=== PATIENT | female | born 1975 | race Caucasian/White ===

== ENCOUNTER → 2023-05-11 | Outpatient (CLI) | payer BC, SELFPAY | END | disposition home or self-care (01) | LOC: LABSPEC 13:01 | PROVIDERS: PCP Family Medicine; Visit Provider Nurse Practitioner Women's Health | DX: N89.8 Other specified noninflammatory disorders of vagina (principal) | CPT/HCPCS: 87070; 87205 ==

== ENCOUNTER → 2023-05-20 | Outpatient (CLI) | payer BC, SELFPAY ==
--- OUTSIDE RECORDS SUMMARY | 2023-05-20 07:02 | XMS RPT_ITS | CCD ---
Author Name Unknown Address [address] [place] [address] Organization [facility] Care Team Providers Care Solder [employer] Name Role Phone FAYE OVIEDO Unavailable Unavailable FAYE OVIEDO Unavailable Unavailable PHYSICIAN, NOT RECORDED Unavailable Unavaila ble Unavailable Primary Care Provider Unavailabl e Jin ASHRAF, Mino Boyce Primary Care Provider Mino Oviedo MD Primary Care Provider SARAI WOODARD Attending Unavailable MINO OVIEDO Primary Care Unavailable MINO OVIEDO Primary Care Unavailable Allergies Allergy Classification Reported Allergen(s) Allergy Type Date of Onset Reaction(s) Facility (14 sources) Ciprofloxacin Drug Allergy 06-11-2015 [facility] Medications Current Medications Medication Drug Class(es) Dates Sig (Normalized) Sig (Original) [id number] 200 actuat albuterol 0.09 mg/actuat metered dose inhaler (15 sources) beta2-Adrenergic Agonist Start: 07-23-2019 take 2 puff(s) by inhalation every six hours as needed albuterol 108 (90 Base) MCG/ACT inhaler Inhale 2 puffs every 6 hours as needed. 0 07/23/2019 Active Completed/Discontinued Medications Medication Drug Class(es) Dates Sig (Normalized) Sig (Original) acetaminophen 325 mg / butalbital 50 mg / caffeine 40 mg oral tablet (3 sources) Barbiturate, Central Nervous System Stimulant, Methylxanthine Start: 06-30-2015 End: 10-27-2022 butalbital-acetami nophen-caffeine 50-325-40 MG tablet Take 1 tablet by mouth. 0 06/30/2015 10/27/2022 Discontinued (Formulary change) Problems Active Problems Problem Classification Problem Date Documented Date Episodic/Chronic Disorders of lipid metabolism (18 sources) Hyperlipidemia; Translations: [Hyperlipidemia, unspecified] Onset: 10-31-2019 03-07-2022 Chronic Headache; including migraine (20 sources) Chronic tension-type headache; Translations: [Chronic tension-type headache, not intractable] Onset: 06-30-2015 03-07-2022 Chronic Mood disorders (17 sources) Recurrent major depression in partial remission; Translations: [Major depressive disorder, recurrent, in partial remission] Onset: 10-29-2020 03-07-2022 Chronic Other nutritional; endocrine; and metabolic disorders (7 sources) Obesity; Translations: [Other obesity due to excess calories] Onset: 11-06-2021 05-07-2022 Chronic Other nutritional; endocrine; and metabolic disorders (8 sources) Obesity caused by energy imbalance; Translations: [Other obesity due to excess calories] Onset: 11-06-2021 05-07-2022 Chronic Other nutritional; endocrine; and metabolic disorders (2 sources) Other obesity due to excess calories; Translations: [Other obesity due to excess calories] Onset: 05-07-2022 Chronic Other nutritional; endocrine; and metabolic disorders (2 sources) Body mass index (BMI) 37.0-37.9, adult; Translations: [Body mass index (BMI) 37.0-37.9, adult] Onset: 05-07-2022 Chronic Other skin disorders (1 source) Eruption; Translations: [Rash and other nonspecific skin eruption] Episodic Residual codes; unclassified (1 source) Flushing; Translations: [Flushing] 10-27-2022 Episodic Spondylosis; intervertebral disc disorders; other back problems (14 sources) Degeneration of lumbar intervertebral disc; Translations: [Other intervertebral disc degeneration, lumbar region] Onset: 03-29-2022 03-29-2022 Chronic Past or Other Problems Problem Classification Problem Date Documented Date Episodic/Chronic Contraceptive and procreative management (14 sources) Oral contraception status; Translations: [Encounter for surveillance of contraceptive pills] Onset: 05-01-2021 03-07-2022 Episodic Disorders of teeth and jaw (14 sources) Temporomandibular joint disorder; Translations: [Unspecified temporomandibular joint disorder, unspecified side] Onset: 06-11-2015 03-07-2022 Episodic Immunizations and screening for infectious disease (14 sources) Raised antinuclear antibody; Translations: [Other specified abnormal immunological findings in serum] Onset: 03-29-2022 03-29-2022 Episodic Mood disorders (14 sources) Mood disorders Onset: 05-06-2022 Resolved: 10-27-2022 05-06-2022 Other screening for suspected conditions (not mental disorders or infectious disease) (9 sources) Patient encounter status; Translations: [Encounter for screening for malignant neoplasm of colon] Onset: 10-27-2022 10-27-2022 Episodic Residual codes; unclassified (15 sources) Edema of lower extremity; Translations: [Localized edema] Onset: 09-23-2017 03-07-2022 Episodic Residual codes; unclassified (15 sources) Insomnia; Translations: [Insomnia, unspecified] Onset: 03-29-2022 03-29-2022 Episodic Residual codes; unclassified (2 sources) Localized edema; Translations: [Localized edema] Onset: 10-27-2022 03-26-2023 Episodic Residual codes; unclassified (1 source) Localized edema; Translations: [Localized edema] Onset: 03-07-2022 Episodic Residual codes; unclassified (2 sources) Insomnia, unspecified; Translations: [Insomnia, unspecified] Onset: 03-29-2022 Episodic Residual codes; unclassified (2 sources) Flushing; Translations: [Flushing] Onset: 10-27-2022 Episodic Results Test Name Value Interpretation Reference Range Facil ity Vital Signs Date Time Vital Sign Value Performing Clinician Smith armstrong 10-27-2022 07:42-0400 Body height 172.7 cm Sarai Woodard APRN [employer] Work Phone: [employer] 10-27-2022 07:42-0400 Body mass index (BMI) [Ratio] 37.4 kg/m2 Sarai Woodard TRACK SUPERVISOR [employer] Work Phone: [employer] 10-27-2022 07:42-0400 Body weight 111.58 kg Sarai Woodard APRN [employer] Work Phone: [employer] 10-27-2022 07:42-0400 Diastolic blood pressure 80 mm[Hg] Sarai Woodard APRN [employer] Work Phone: [facility] [employer] 10-27-2022 07:42-0400 Heart rate 73 /min Sarai Woodard TRACK SUPERVISOR - [employer] Work Phone: [facility] [employer] 10-27-2022 07:42-0400 SaO2% (BldA) [Mass fraction] 98 % Sarai Woodard TRACK SUPERVISOR - [employer] Work Phone: [facility] [employer] 10-27-2022 07:42-0400 Systolic blood pressure 136 mm[Hg] Sarai Woodard TRACK SUPERVISOR - [employer] Work Phone: [facility] 03-06-2022 11:28-0400 Body height 175.3 cm Renae Minnie PA-C Work Phone: [facility] 03-06-2022 11:28-0400 Body temperature 98.01 [degF] Renae Minnie PA-C Work Phone: [facility] 03-06-2022 11:28-0400 Body weight 107.05 kg Renae [place] PA-C Work Phone: [facility] 03-06-2022 11:28-0400 Diastolic blood pressure 88 mm[Hg] Renae [place] PA-C Work Phone: [facility] 03-06-2022 11:28-0400 Heart rate 66 /min Renae [place] PA-C Work Phone: [facility] 03-06-2022 11:28-0400 Respiratory rate 16 /min Renae [place] PA-C Work Phone: [facility] 03-06-2022 11:28-0400 SaO2% (BldA) [Mass fraction] 98 % Renae Minnie PA-C Work Phone: [facility] 03-06-2022 11:28-0400 Systolic blood pressure 122 mm[Hg] Renae [place] PA-C Work Phone: [facility] Encounters Encounter Date Encounter Type Care Provider Facility Start: 05-11-2023 Refill Sarai Woodard TRACK SUPERVISOR - [employer] Work Phone: [facility] Procedures Date Procedure Procedure Detail Performing Clinician Start: 11-25-2022 Lipid 1995 panel - S drake or Plasma Sarai Woodard TRACK SUPERVISOR - [employer] Work Phone: Start: 10-27-2022 Lipid 1995 panel - S drake or Plasma Sarai Woodard TRACK SUPERVISOR - [employer] Work Phone: Start: 11-06-2021 Lipid 1995 panel - S drake or Plasma Mino Oviedo MD Work Phone: Start: 11-06-2021 Microscopic observat ion [Identifier] in Cervix by Cyto stain Mino Oviedo MD Work Phone: Start: 06-22-2019 Mammography Mino ledesma MD Work Phone: Plan of Treatment Date Care Activity Detail Author Start: 2035 RSV Immunization age d 60 or older (1 - 1-dose 60+ series) RSV Immunization aged 60 or older (1 - 1-dose 60+ series) [facility] Start: 11-26-2027 Lipid panel Lipid Panel [facility] Start: 10-28-2027 Lipid panel Lipid Panel [facility] Start: 11-06-2026 Lipid panel Lipid Panel [facility] Start: 11-24-2025 Screening for malign ant neoplasm of colon [facility] Start: 10-05-2025 Zoster Vaccines (1 of 2) Zoster Vacc mitul (1 of 2) [facility] Start: 05-07-2025 Diabetes mellitus screening Diabetes Screening [facility] Start: 11-06-2024 Screening for malign ant neoplasm of cervix [facility] Start: 05-07-2023 COVID-19 Vaccine (3 - Booster for Moderna series) COVID-19 Vaccine (3 - Booster for Moderna series) [facility] Immunizations Immunization Date Immunization Notes Care Provider Fa naren 06-23-2000 Td, Adsorbed, Preser vative Free, Adult Use, Lf Unspecified Mino Oviedo MD Work Phone: [facility] 10-05-1976 measles, mumps and r ubella virus vaccine Mino Oviedo MD Work Phone: [facility] Payers Date Payer Category Payer Unknown [id number] 2020 Unknown [id number] 2017 Unknown [id number] Social History Date Type Detail Facility Tobacco smoking stat [facility] Tobacco smoking consumption unknown [facility] Start: 1975 Sex Assigned At Not on file C [facility] Start: 02-24-2022 End: 11-25-2022 Exposure to SARS-CoV-2 (event) Not sure [facility] Tobacco smoking stat [facility] Never smoked tobacco [facility] Start: 05-11-2022 End: 10-27-2022 Alcohol intake Current non-drinker of alcohol (finding) [facility] Start: 05-11-2022 End: 10-27-2022 Alcohol intake [facility] Start: 1975 Sex Assigned At Female [facility] Start: 05-06-2022 End: 10-27-2022 Tobacco use panel [facility] Start: 03-24-2022 Gender identity Identifies as female gender (finding) [facility] Adolescent depressio n screening assessment 5 [facility] Clinical Notes 03-06-2022 to 05-11-2023 Telephone Encounter - BASSEM Villarreal CNP - 05/11/2023 12:28 PM ESTTelephone Encounter - BASSEM Villarreal CNP - 05/11/2023 12:28 PM ESTPatient Instructions Note Date & Type Note Facility 05-11-2023 Telephone encounter Note Reviewed chart. Refill not appropriate, too soon. RX refused [facility] Work Phone: 05-11-2023 Miscellaneous Notes Reviewed chart. Refill not appropriate, too soon. RX refused Prescription Request: Last medication check: 05/07/22 Last physical exam: 10/27/22 Next scheduled appointment: none Last date of refill on this medication 05/06/23 documented in this encounter [facility] 05-11-2023 Telephone encounter Note Prescription Request: Last medication check: 05/07/22 Last physical exam: 10/27/22 Next scheduled appointment: none Last date of refill on this medication 05/06/23 [facility] 05-09-2023 Note Addended by: KATHY MIRANDA on: 05/09/2023 10:58 AM Modules accepted: Orders [facility] 05-09-2023 Note Addended by: KATHY MIRANDA on: 05/09/2023 10:58 AM Modules accepted: Orders [facility] 05-09-2023 Miscellaneous Notes Addended by: KATHY MIRANDA on: 05/09/2023 10:58 AM Modules accepted: Orders Patient states she did not get a 90 day supply, I called the pharmacy, they said they were trying to sync up her fills so she received 90 in November, then 03/05/23 she got 22, then 04/08/23 she got 30 and now the insurance won't pay for another partial rx unless it is a 90 day supply. They need a new rx. Was filled in November for a 90 day supply plus one refill in November. Not due for refill until May. Pharmacy stated insurance is requesting for this to be a 90 day Medication name: atorvastatin (Lipitor) 40 MG tablet Medication dosage: 40 mg (Miligrams Monthly quantity needed: 90 How many day supply requestin days Medication route: oral (PO) Medication administration time(s): daily If taking medication PRN, reason for taking medication: N/A If this is a controlled substance do you receive this or any other controlled medication from any other doctor or facility: No Ordering provider: Dr. Oviedo Date of last office visit: 10.27.2022 Date of next office visit: NA Date of last refill: (see medication tab): 11.29.2022 Updated/Validated preferred pharmacy: Yes Patient instructed to contact the pharmacy prior to picking up the medication: Yes documented in this encounter [facility] [employer] 05-09-2023 Telephone encounter Note Patient states she did not get a 90 day supply, I called the pharmacy, they said they were trying to sync up her fills so she received 90 in November, then 03/05/23 she got 22, then 04/08/23 she got 30 and now the insurance won't pay for another partial rx unless it is a 90 day supply. They need a new rx. [facility] [employer] 05-09-2023 Telephone encounter Note Pt declines to schedule at this time. [facility] 05-09-2023 Miscellaneous Notes Pt declines to schedule at this time. Images from the original note were not included. Sarai Woodard, BASSEM - [employer] 05/06/23 12:30 PM Note Rx sent. Due for annual physical in October- please schedule. Left a message to return call. LM please schedule PE in october Rx sent. Due for annual physical in October- please schedule. Prescription Request: Last medication check: 05/07/22 Last physical exam: 10/27/22 Next scheduled appointment: none Last date of refill on this medication 03/23/23 16 tablets documented in this encounter [facility] [employer] 05-09-2023 Telephone encounter Note Images from the original note were not included. BASSEM Berry CNP 05/06/23 12:30 PM Note Rx sent. Due for annual physical in October- please schedule. Left a message to return call. [facility] [employer] 05-06-2023 Telephone encounter Note LM please schedule PE in october [facility] [employer] 05-06-2023 Miscellaneous Notes LM please schedule PE in october Rx sent. Due for annual physical in October- please schedule. Prescription Request: Last medication check: 05/07/22 Last physical exam: 10/27/22 Next scheduled appointment: none Last date of refill on this medication 03/23/23 16 tablets documented in this encounter [facility] [employer] 05-06-2023 Telephone encounter Note Rx sent. Due for annual physical in October- please schedule. [facility] [employer] 05-06-2023 Telephone encounter Note Was filled in November for a 90 day supply plus one refill in November. Not due for refill until May. [employer] 05-06-2023 Telephone encounter Note Pharmacy stated insurance is requesting for this to be a 90 day Medication name: atorvastatin (Lipitor) 40 MG tablet Medication dosage: 40 mg (Miligrams Monthly quantity needed: 90 How many day supply requestin days Medication route: oral (PO) Medication administration time(s): daily If taking medication PRN, reason for taking medication: N/A If this is a controlled substance do you receive this or any other controlled medication from any other doctor or facility: No Ordering provider: Dr. Oviedo Date of last office visit: 10.27.2022 Date of next office visit: NA Date of last refill: (see medication tab): 11.29.2022 Updated/Validated preferred pharmacy: Yes Patient instructed to contact the pharmacy prior to picking up the medication: Yes [facility] [employer] 05-06-2023 Telephone encounter Note Prescription Request: Last medication check: 05/07/22 Last physical exam: 10/27/22 Next scheduled appointment: none Last date of refill on this medication 03/23/23 16 tablets [employer] 03-28-2023 Telephone encounter Note Prescription Request: Last medication check: 05/07/22 Last physical exam: 10/27/22 Next scheduled appointment: 05/02/23 Last date of refill on this medication 11/05/22 90 day 1 refill [facility] 03-28-2023 Miscellaneous Notes Prescription Request: Last medication check: 05/07/22 Last physical exam: 10/27/22 Next scheduled appointment: 05/02/23 Last date of refill on this medication 11/05/22 90 day 1 refill documented in this encounter [facility] 03-23-2023 Telephone encounter Note Clarified with pt, send to [facility] pharmacy on file. [facility] 03-23-2023 Miscellaneous Notes Clarified with pt, send to [facility] pharmacy on file. Name of caller: Yasmine Contact phone number: [phone] Relationship to Patient: patient Provider: Dr. Oviedo Practice: [facility] Chief Complaint/Reason for Call: The patient is calling in stating she needs a refill of her medication called Rimegepant Sulfate (Nurtec) 75 MG tablet dispersible. The patient states the medication goes through [facility] and they can be reached at [phone]. Please advise. Best time of day caller can be reached: Any Patient advised that office/PCP has 24-48 business hours to return their call: No documented in this encounter [facility] 03-23-2023 Telephone encounter Note Name of caller: Yasmine Contact phone number: [phone] Relationship to Patient: patient Provider: Dr. Oviedo Practice: [facility] Chief Complaint/Reason for Call: The patient is calling in stating she needs a refill of her medication called Rimegepant Sulfate (Nurtec) 75 MG tablet dispersible. The patient states the medication goes through [facility] and they can be reached at [phone]. Please advise. Best time of day caller can be reached: Any Patient advised that office/PCP has 24-48 business hours to return their call: No [facility] 01-20-2023 Telephone encounter Note Medication name: Rimegepant Medication dosage: 75 mg (Miligrams Monthly quantity needed: 16 How many day supply requesting: N/A Medication route: oral (PO) Medication administration time(s): Take 1 tablet by mouth daily as needed (headaches). No more than one dose in 24 hours. If taking medication PRN, reason for taking medication: N/A If this is a controlled substance do you receive this or any other controlled medication from any other doctor or facility: No Ordering provider: Dr Oviedo Date of last office visit: 10.27.22 Date of next office visit: 05.02.23 Date of last refill: (see medication tab): 12.03.22 Updated/Validated preferred pharmacy: Yes Patient instructed to contact the pharmacy prior to picking up the medication: Yes [facility] 01-20-2023 Miscellaneous Notes Medication name: Rimegepant Medication dosage: 75 mg (Miligrams Monthly quantity needed: 16 How many day supply requesting: N/A Medication route: oral (PO) Medication administration time(s): Take 1 tablet by mouth daily as needed (headaches). No more than one dose in 24 hours. If taking medication PRN, reason for taking medication: N/A If this is a controlled substance do you receive this or any other controlled medication from any other doctor or facility: No Ordering provider: Dr Oviedo Date of last office visit: 10.27.22 Date of next office visit: 05.02.23 Date of last refill: (see medication tab): 12.03.22 Updated/Validated preferred pharmacy: Yes Patient instructed to contact the pharmacy prior to picking up the medication: Yes documented in this encounter [facility] 12-27-2022 Telephone encounter Note Rx sent. Follow up as scheduled. [facility] 12-27-2022 Miscellaneous Notes Rx sent. Follow up as scheduled. Prescription Request: Last medication check: 05/07/22 Last physical exam: 10/27/22 Next scheduled appointment: 05/02/23 Last date of refill on this medication 07/12/22 84 tablets 1 refill documented in this encounter [facility] 12-27-2022 Telephone encounter Note Prescription Request: Last medication check: 05/07/22 Last physical exam: 10/27/22 Next scheduled appointment: 05/02/23 Last date of refill on this medication 07/12/22 84 tablets 1 refill [facility] 11-10-2022 History of Presen t illness Narrative Received fax for refill of Nurtec. Rx sent. documented in this encounter [facility] 10-27-2022 History of Presen t illness Narrative Images from the original note were not included. [facility] [address] [facility] [address] [facility] [id number] Dept: [phone] Dept Loc: [phone] HPI: Yasmine Simmons is a 47 y.o. female who presents today for her medical conditions/complaints as noted below. Yasmine Simmons is c/o of Annual Exam and Health Maintenance (Hep C--declines, HIV--declines, Colon--will do cologuard, Caleb--declines, Tdap--declines, Hep B--declines, COVID 3--has not had) HPI- Yasmine Simmons presents today for her annual physical and fasting blood work. Declines a WFE today. Has been running 2-3 times per week and goes to full body classes for exercise. Has menopause symptoms (hot flashes) and is planning to schedule an appointment with a specialist in [place] for management of her symptoms. Would like her thyroid level checked today. Hyperlipidemia: Has not been taking her Rosuvastatin for her cholesterol for the past month because she received notification from her insurance that they will no longer cover her medication. Levels were stable when checked in October of 2021- will recheck today. Component Ref Range & Units 11/06/21 0730 Cholesterol <200 mg/dL 179 Triglycerides <150 mg/dL 119 HDL 40 - 60 mg/dL 60 LDL Cholesterol <100 mg/dL 95 Chol/HDL Ratio NA 3 Headaches: Symptoms have been stable- does have a headache today but this is her first one in a month. Has been going to a chiropractor and feels this has been helping. Denies current concerns or worries. Her sister has been selling Nurtec ([facility] mail order) and has tried this and states it is helpful. Requesting a prescription for this. Has not been using the Fioricet. Would like to switch to the Nurtec instead. Leg Swelling: Continues to experience intermittent leg swelling especially when she eats a lot of salty foods. HCTZ helps with this- takes daily. Depression: Continues to take her Prozac daily as prescribed. Denies suicidal ideations. Would like to continue taking the medication at this time. Insomnia: Has been taking Melatonin as needed for sleep. Has tried numerous other medications for sleep and either had intolerances or they were not helpful. Health Maintenance: Performs self breast examinations; denies nipple discharge, nodules, or discoloration. Positive family history of breast cancer- paternal cousin. Last mammogram was 06/22/19- would like an order for one today. Last pap smear was 11/06/21- normal findings. Declines a Tdap vaccination. Declines screening for HIV for Hepatitis C. Has been vaccinated for COVID-19 (Moderna) x2- declines to get an additional dose. Declines a colonoscopy for colon cancer screening at this time, but is willing to do a home Cologuard test. Declines a Hep B vaccination. See ROS for additional information. Past Medical History: Diagnosis Date Acute bacterial sinusitis 06/16/2021 Hypertension TMJ (temporomandibular joint disorder) Past Surgical History: Procedure Laterality Date APPENDECTOMY SECTION (HISTORICAL) x2 Family History Problem Relation Name Age of Onset High Blood Pressure Mother No Known Problems Father Breast cancer Paternal Cousin 29 Social History Tobacco Use Smoking status: Never Smokeless tobacco: Never Substance Use Topics Alcohol use: No Alcohol/week: 0.0 standard drinks of alcohol Current Outpatient Medications Medication Sig Dispense Refill albuterol 108 (90 Base) MCG/ACT inhaler Inhale 2 puffs every 6 hours as needed. ascorbic acid (Vitamin C) 250 MG tablet Take 500 mg by mouth. aspirin 81 MG EC tablet 1 tab(s) cholecalciferol (Vitamin D-3) 25 MCG (1000 UT) tablet Take 1,000 Units by mouth. cyanocobalamin (Vitamin B-12) 100 MCG tablet Take 50 mcg by mouth. FLUoxetine (PROzac) 20 MG capsule TAKE 1 CAPSULE BY MOUTH EVERY DAY 90 capsule 1 hydroCHLOROthiazide (HYDRODiuril) 25 MG tablet TAKE 1 TABLET BY MOUTH EVERY DAY 90 tablet 1 Misc Natural Products (GLUCOSAMINE CHONDROITIN ADV PO) Take by mouth. Norethin Valerio-Eth Estrad-FE (Rosalva 24 Fe) 1-20 MG-MCG(24) chewable tablet Chew 1 tablet daily. 84 tablet 1 Potassium 75 MG tablet Take by mouth. Rimegepant Sulfate (Nurtec) 75 MG tablet dispersible Take 1 tablet (75 mg) by mouth Daily as needed (headaches). 30 tablet 0 No current facility-administered medications for this visit. Allergies Allergen Reactions Ciprofloxacin Hives Health Maintenance Topic Date Due Influenza Vaccine (Season Ended) 2023 DTaP/Tdap/Td Vaccines (2 - Tdap) 05/07/2023 (Originally 07/21/2000) Hepatitis B Vaccines (1 of 3 - 3-dose series) 05/07/2023 (Originally 1975) Mammogram 05/07/2023 (Originally 06/22/2020) HIV Screening 05/07/2023 (Originally 1975) Hepatitis C Screening 05/07/2023 (Originally 10/05/1993) Colorectal Cancer Screening 05/07/2023 (Originally 1975) COVID-19 Vaccine (3 - Booster for Moderna series) 05/07/2023 (Originally 04/04/2021) Depresssion Monitoring 04/28/2023 Cervical Cancer Screening 11/06/2024 Diabetes Screening 05/07/2025 Zoster Vaccines (1 of 2) 10/05/2025 Lipid Panel 11/06/2026 MMR Vaccines Completed HIB Vaccines Aged Out IPV Vaccines Aged Out Hepatitis A Vaccines Aged Out Meningococcal Vaccine Aged Out Rotavirus Vaccines Aged Out HPV Vaccines Aged Out Pneumococcal Vaccine: Pediatrics (0 to 5 Years) and At-Risk Patients (6 to 64 Years) Aged Out Subjective: Review of Systems Constitutional: Negative for chills and fever. HENT: Negative for hearing loss and trouble swallowing. Eyes: Negative for pain and visual disturbance. Respiratory: Negative for cough, chest tightness, shortness of breath and wheezing. Cardiovascular: Negative for chest pain, palpitations and leg swelling. Gastrointestinal: Negative for abdominal distention, abdominal pain, blood in stool, constipation and diarrhea. Endocrine: Negative for polydipsia, polyphagia and polyuria. Genitourinary: Negative for dysuria, hematuria, menstrual problem, pelvic pain, vaginal bleeding, vaginal discharge and vaginal pain. Musculoskeletal: Negative for arthralgias and myalgias. Skin: Negative for color change, pallor, rash and wound. Neurological: Positive for headaches. Negative for dizziness, syncope and weakness. Hematological: Does not bruise/bleed easily. Psychiatric/Behavioral: Positive for dysphoric mood and sleep disturbance. Negative for self-injury and suicidal ideas. Objective: BP 136/80 Pulse 73 Ht 5' 8 (1.727 m) Wt 246 lb (112 kg) LMP (LMP Unknown) Comment: Does not have a cycle on her control SpO2 98% BMI 37.40 kg/m Last 3 PHQ-9 Scores 10/27/2022 0744 05/06/2022 1300 Patient Health Questionnaire-9 Score: 5 5 Physical Exam Constitutional: Oriented to person, place, and time. Appears well-developed and well-nourished. No distress. HENT: Head: Normocephalic and atraumatic. Right Ear: External ear normal. Left Ear: External ear normal. Nose: Nose normal. Mouth/Throat: Oropharynx is clear and moist. No oropharyngeal exudate. Bilateral TM's pearly jimenez with a good cone of light bilaterally. Eyes: Conjunctivae and EOM are normal. Pupils are equal, round, and reactive to light. Right eye exhibits no discharge. Left eye exhibits no discharge. Neck: Normal range of motion. Neck supple. No thyromegaly present. Cardiovascular: Normal rate, regular rhythm, normal heart sounds and intact distal pulses. Exam reveals no friction rub. No murmur heard. Carotid upstrokes brisk and without bruits bilaterally. Pulmonary/Chest: Effort normal and breath sounds normal. No respiratory distress. No wheezes. No rales. Breast Examination: Declines. Abdominal: Soft. Bowel sounds are normal. No distension and no mass. There is no hepatosplenomegaly. There is no tenderness. Protuberant abdomen impairing examination. Musculoskeletal: Normal range of motion. No edema, tenderness or deformity. Strength 5/5 with flexion and extension of extremities x4. Lymphadenopathy: No cervical adenopathy. Neurological: Alert and oriented to person, place, and time.Normal reflexes. Coordination normal. Skin: Skin is warm and dry. No rash noted. No erythema. No pallor. Psychiatric: Normal mood and affect. Behavior is normal. Judgment and thought content normal. Assessment and Plan: 1. Encounter for well adult exam with abnormal findings - Encouraged a healthy diet low in cholesterol and saturated fats. - Encouraged regular exercise. 2. Hyperlipidemia LDL goal <100 - CBC - Lipid panel - Comprehensive metabolic panel - Will check cholesterol levels today and provide recommendations accordingly. 3. Chronic tension-type headache, not intractable - CBC - Comprehensive metabolic panel - Rimegepant Sulfate (Nurtec) 75 MG tablet dispersible; Take 1 tablet (75 mg) by mouth Daily as needed (headaches)., Starting Tue10/27/2022, Normal - TSH - Stable with Nurtec. Will continue current treatment plan. 4. Lower extremity edema - CBC - Comprehensive metabolic panel - Stable with hydrochlorothiazide. Will continue current treatment plan. 5. Recurrent major depressive disorder, in partial remission (HCC) - CBC - Comprehensive metabolic panel - TSH - Stable with Prozac. Will continue current treatment plan. 6. Insomnia, unspecified type - CBC - Comprehensive metabolic panel - TSH - Stable with Melatonin. Will continue current treatment plan. 7. Hot flashes - CBC - Comprehensive metabolic panel - TSH - Will notify of blood work results. - Follow up with specialist as directed. 8. Class 2 obesity due to excess calories without serious comorbidity with body mass index (BMI) of 37.0 to 37.9 in adult - CBC - Comprehensive metabolic panel - TSH - Encouraged continuation of a healthy diet and regular exercise. 9. Screening for colon cancer - Cologuard colon cancer screening 10. Screening for diabetes mellitus - Comprehensive metabolic panel - Will notify of blood work results. 11. Screening mammogram for breast cancer - Bilateral screening mammogram Yasmine received counseling on the following healthy behaviors: continue current medications Patient given educational materials on: Nurtec Discussed use, benefit, and side effects of prescribed medications. Barriers to medication compliance addressed. All patient questions answered. Pt voiced understanding. Follow Up: Follow up in about 6 months (around 04/28/2023) for medication maintenance. Orders Placed This Encounter Procedures Bilateral screening mammogram Standing Status: Future Standing Expiration Date: 12/28/2023 CBC Standing Status: Future Number of Occurrences: 1 Standing Expiration Date: 10/28/2023 Lipid panel Standing Status: Future Number of Occurrences: 1 Standing Expiration Date: 10/28/2023 Comprehensive metabolic panel Standing Status: Future Number of Occurrences: 1 Standing Expiration Date: 10/28/2023 Cologuard colon cancer screening TSH Standing Status: Future Number of Occurrences: 1 Standing Expiration Date: 10/28/2023 BASSEM Berry CNP 10/27/2022 8:50 AM documented in this encounter [facility] 09-21-2022 Telephone encounter Note Prescription Request: Last medication check: 05/07/22 Last physical exam: 11/06/21 Next scheduled appointment: 10/27/22 Last date of refill on this medication 03/08/22 90 days 1 refill [facility] 09-21-2022 Miscellaneous Notes Prescription Request: Last medication check: 05/07/22 Last physical exam: 11/06/21 Next scheduled appointment: 10/27/22 Last date of refill on this medication 03/08/22 90 days 1 refill documented in this encounter [facility] 03-06-2022 Instructions Renae Hartman PA-C - 03/06/2022 11:43 AM EDT Claritin or jill and Pepcid AC documented in this encounter [facility] 03-06-2022 History of Presen t illness Narrative Yasmine Simmons is a 46 year old female with a complaint of skin rash x 3 weeks. Exposed to poison sumac two weeks ago after cutting down tree and burning it. C/o itchy rash on abdomen, legs, arm, neck. Initially had rash on face. Saw PCP, prescribed prednisone. Pt states she didn't take it correctly but finished the prescription. Improved on face but now on other areas since stopping prednisone. has few spots on his hand. Sister has similar rash, she helped cut down the tree. Kids do not have a rash. Nothing on hands or feet. Using topical creams, calamine lotion, benadryl with minimal relief. REVIEW OF SYSTEMS See HPI, otherwise unremarkable. No past medical history on file. No past surgical history on file. No family history on file. PHYSICAL EXAMINATION: Vitals: BP 122/88 Pulse 66 Temp 36.7 C (98 F) Resp 16 Ht 175.3 cm (5' 9 ) Wt 107 kg (236 lb) SpO2 98% BMI 34.85 kg/m General Appearance: Well appearing, alert, in no acute distress, obese. Skin: diffuse erythematous papular rash on anterior neck, abdomen, b/l LEs and left forearm, some vesicles, no burrowing or erythematous streaking, warmth or drainage. ASSESSMENT: DIAGNOSIS: (R21) Skin rash (primary encounter diagnosis) PLAN: Prednisone taper, add claritin/jill and pepcid AC. Follow up for new, worsening or persistent sx. Pt in agreement with the plan and verbalized understanding. Renae Hartman PA-C documented in this encounter [facility] Diagnosis Encounter for well adult exam with abnormal findings- Primary Hyperlipidemia LDL goal <100 Other and unspecified hyperlipidemia Chronic tension-type headache, not intractable Chronic tension type headache Lower extremity edema Edema Recurrent major depressive disorder, in partial remission (HCC) Insomnia, unspecified type Hot flashes Class 2 obesity due to excess calories without serious comorbidity with body mass index (BMI) of 37.0 to 37.9 in adult Screening for colon cancer Special screening for malignant neoplasms, colon Screening for diabetes mellitus Screening mammogram for breast cancer [facility] [place] [facility] Diagnosis Chronic tension-type headache, not intractable Chronic tension type headache [facility] [place] [facility] Diagnosis Chronic tension-type headache, not intractable Chronic tension type headache [facility] Diagnosis Chronic tension-type headache, not intractable Chronic tension type headache [facility] [place] [facility] Diagnosis Chronic tension-type headache, not intractable Chronic tension type headache [facility] [place] [facility]* Diagnosis Localized edema Edema [facility] [place] [facility] Diagnosis Chronic tension-type headache, not intractable Chronic tension type headache [facility] [place] [facility] Diagnosis Chronic tension-type headache, not intractable Chronic tension type headache [facility] Diagnosis Hyperlipidemia LDL goal <100 Other and unspecified hyperlipidemia [facility] Diagnosis Chronic tension-type headache, not intractable Chronic tension type headache [facility]* Attachments The following attachments cannot be sent through Care Everywhere. * Rimegepant, ADULT (Tajik) [facility] Summary Purpose Family History No Family History Records FoundNo Family History Records Found Advance Directives No Advanced Directives Records FoundNo Advanced Directives Records Found Additional Source Comments INFORMATION SOURCE (unrecogn ized section and content) DATE CREATED AUTHOR AUTHOR'S ORGANIZ ATION 05/13/2023 [facility] Source Comments (unrecognize d section and content) In the event this informatio n is protected by the Federal Confidentiality of Alcohol and Drug Abuse Patient Records regulations: The Federal rules restrict any use of the information to criminally investigate or prosecute any alcohol or drug abuse patient.[facility] Reason for Visit (unrecogniz ed section and content) Reason Comments Med Refill Reason Comments Annual Exam Health Maintenance Hep C--declines, HIV --declines, Colon--will do cologuard, Caleb--declines, Tdap--declines, Hep B--declines, COVID 3--has not had Reason Onset Date Comments Med Refill 01/20/2023 Reason Onset Date Comments Medication Problem 03/23/2023 Reason Onset Date Comments Med Refill 05/06/2023 Care Teams (unrecognized sec tion and content) [employer] Relationship Specialty Start Date End Date Mino Oviedo MD [address] [place] [id number] PCP - General 06/11/15 [employer] Relationship Specialty Start Date End Date Mino Oviedo MD [address] [place] [id number] PCP - General 06/11/15 [employer] Relationship Specialty Start Date End Date Mino Oviedo MD [address] [place] [id number] PCP - General 06/11/15 [employer] Relationship Specialty Start Date End Date Mino Oviedo MD [address] [place] [id number] PCP - General 06/11/15 [employer] Relationship Specialty Start Date End Date Mino Oviedo MD [address] [facility] [place] [address] PCP - General 06/11/15 [employer] Relationship Specialty Start Date End Date Mino Oviedo MD [address] [facility] [[email or web address] [place] [address] PCP - General 06/11/15 [employer] Relationship Specialty Start Date End Date Mino Oviedo MD [address] [facility] [place] [address] PCP - General 06/11/15 [employer] Relationship Specialty Start Date End Date Mino Oviedo MD [address] [place] [address] [facility] [[email or web address]] [place] [address] PCP - General 06/11/15 FOR RECORDS PERTAINING TO PATIENTS WHO ARE OR HAVE BEEN ENROLLED IN A CHEMICAL DEPENDENCY/SUBSTANCEABUSE PROGRAM, SOME INFORMATION MAY BE OMITTED. This clinical summary was aggregated from multiple sources. Caution should be exercised in using it in the provision of clinical care. This summary normalizes information from multiple sources, and as a consequence, information in this document may materially change the coding, format and clinical context of patient data. In addition, data may be omitted in some cases. CLINICAL DECISIONS SHOULD BE BASED ON THE PRIMARY CLINICAL RECORDS. [employer] [facility]. provides no warranty or guarantee of the accuracy or completeness of information in this document.
[2023-05-20 07:57] LABS: Absolute Lymphocyte Count 2.59 X10^3/uL (0.83-4.51); Absolute Neutrophil Count 2.4 X10^3/uL (2.0-7.7); Basophil# 0.04 X10^3/uL; Basophil% 0.7 % (0-1); Eosinophil# 0.19 X10^3/uL; Eosinophils% 3.4 % (0-5); Hematocrit 42.9 % (37-47); Hemoglobin 14.5 g/dL (12.0-15.0); Lymphocyte # 2.59 X10^3/ul (0.83-4.51); Lymphocyte % 46.8 % (19-41); Mean Corp Hgb Conc 33.8 g/dL (32-36); Mean Corpuscular Hgb 30.2 pg (27.0-32.0); Mean Corpuscular Volume 89.4 fL (81-99); Mean Platelet Vol. 9.2 fl (6.2-12.0); Monocyte# 0.35 X10^3/uL; Monocyte% 6.3 % (0-10); NRBC Flagged by Analyzer 0 % (0-5); Neutrophil # 2.35 X10^3/uL (2.7-7.7); Neutrophil % 42.6 % (47-70); Platelet Count 292 K/mm3 (150-450); RBC Distribution Width CV 12.4 % (11.6-14.6); RBC Distribution Width SD 40.7 fl (35.1-43.9); White Blood Count 5.5 K/mm3 (4.4-11.0)
[2023-05-20 08:40] LABS: Estradiol 23.2 pg/mL; Follicle Stimulating Hormone 48.2 mIU/mL
== END | disposition home or self-care (01) ==
PROVIDERS: PCP Family Medicine; Referring Provider Nurse Practitioner Women's Health; Visit Provider Nurse Practitioner Women's Health
DX: N95.1 Menopausal and female climacteric states (principal); Z13.21 Encounter for screening for nutritional disorder
CPT/HCPCS: 36415; 82306; 82670; 83001; 85025